=== PATIENT | male | born 1990 | race Caucasian/White ===

== ENCOUNTER → 2023-12-18 06:34 | Day surgery (SDC) | payer SELFPAY | LOC: GI 06:34 | PROVIDERS: ATTENDING PHYSICIAN Internal Medicine Gastroenterology | DX: R12 Heartburn (principal); R14.0 Abdominal distension (gaseous); K31.7 Polyp of stomach and duodenum; K29.50 Unspecified chronic gastritis without bleeding | CPT/HCPCS: 43239; 88305; 88342 ==